=== PATIENT | female | born 2000 ===

== ENCOUNTER 2023-01-10 20:09 | Inpatient (IN) | payer BC ==
[2023-01-10] MEDS ORDERED: Lidocaine 1% 50 ML MDV INJECT PRN (20:38)
[2023-01-10] MEDS ORDERED: Water For Irrigation,Sterile 1,000 ML Container IRR PRN (20:38)
[2023-01-10] MEDS ORDERED: Ondansetron 4 MG/2 ML SDV IVPUSH PRN (20:38)
[2023-01-10] MEDS ORDERED: Ampicillin 2 GM in Sodium Chloride 0.9% 100 ML IV ONE (20:38)
[2023-01-10] MEDS ORDERED: Sodium Chloride 0.9% 2.5 ML Syringe FLUSH PRN (20:38)
[2023-01-10] MEDS ORDERED: Misoprostol 200 MCG Tab PO PRN (20:38)
[2023-01-10] MEDS ORDERED: Sodium Chloride 0.9% 20 ML SDV IV PRN (20:38)
[2023-01-10] MEDS ORDERED: Sodium Chloride 0.9% 10 ML Syringe FLUSH PRN (20:38)
[2023-01-10] MEDS ORDERED: Tranexamic Acid 1,000 MG in Sodium Chloride 0.9% 100 ML IV PRN ×2 (20:38→23:38)
[2023-01-10] MEDS ORDERED: Methylergonovine 0.2 MG/1 ML Amp IM PRN ×2 (20:38→23:38)
[2023-01-10] MEDS ORDERED: Carboprost Tromethamine 250 MCG/1 mL Vial IM PRN (20:38)
[2023-01-10] MEDS ORDERED: Lactated Ringers 1,000 ML IV SCH (20:45)
[2023-01-10] MEDS ORDERED: Oxytocin/0.9 % Sodium Chloride 30 UNIT/500 ML BAG IV SCH (20:45)
[2023-01-10] MEDS ORDERED: Oxytocin 10 Units/1 ML SDV ONE (21:11)
[2023-01-10] MEDS ORDERED: Nalbuphine HCl 10 MG/ 1ML Amp ONE (21:27)
[2023-01-10] MEDS ORDERED: Nalbuphine HCl 10 MG/ 1ML Amp IVPUSH ONE (21:30)
[2023-01-10 21:42] LABS: HEMATOCRIT 35.6 % (36.0-46.0); HEMOGLOBIN 11.9 g/dL (12.0-16.0); MEAN CORPUSCULAR HEMOGLOBIN 25.9 pg (27.0-32.0); MEAN CORPUSCULAR HGB CONC 33.4 g/dL (31.0-37.0); MEAN CORPUSCULAR VOLUME 77.4 fL (80.0-98.0); MEAN PLATELET VOLUME 10.6 fL (7.40-12.00); RED BLOOD CELL COUNT 4.6 M/uL (4.30-5.90); WHITE BLOOD CELL COUNT,WBC 12.23 K/uL (4.0-11.0)
[2023-01-10] MEDS ORDERED: Witch Hazel Medicated Pads 40/Jar TOP PRN (23:38)
[2023-01-10] MEDS ORDERED: Ibuprofen 400 MG Tab PO PRN (23:38)
[2023-01-10] MEDS ORDERED: Ibuprofen 800 MG Tab PO PRN (23:38)
[2023-01-10] MEDS ORDERED: Lanolin 100% Cream 7 GM Tube TOP PRN (23:38)
[2023-01-10] MEDS ORDERED: Acetaminophen 500 MG Tab PO PRN ×2 (23:38)
[2023-01-10] MEDS ORDERED: Misoprostol 200 MCG Tab RECTAL PRN (23:38)
[2023-01-10] MEDS ORDERED: Bisacodyl 10 MG Supp RECTAL PRN (23:38)
[2023-01-10] MEDS ORDERED: Benzocaine/Menthol 20%-0.5% Spray 78 GM Cannister TOP PRN (23:38)
[2023-01-10 23:50] LABS: PH,UMBILICAL ARTERIAL 7.179 (7.18-7.38); PH,UMBILICAL VENOUS 7.219 (7.25-7.45)
[2023-01-11] MEDS ORDERED: Ampicillin 1 GM in Sodium Chloride 0.9% 50 ML IV SCH (00:38)
[2023-01-11 06:34] LABS: HEMATOCRIT 30.8 % (36.0-46.0); HEMOGLOBIN 9.9 g/dL (12.0-16.0)
[2023-01-11] MEDS: Docusate Sodium 100 MG Cap PO PRN ×2 (08:09→21:36)
[2023-01-12] MEDS: Docusate Sodium 100 MG Cap PO PRN (08:14)
== END 2023-01-12 23:45 | disposition home or self-care (01) | DRG 560 ==
LOC: MW.OBCHECK 20:09 → MW.OB 20:10 → MW.OBCHECK 20:48 → OBSVTOIN 22:37 → MW.OB 01-11 01:24
PROVIDERS: ADMIT Obstetrics & Gynecology; ATTEND Obstetrics & Gynecology
PROC: 10E0XZZ Delivery of Products of Conception, External Approach (ICD-10-PCS; principal; 2023-01-10)
PROC: 3E033VJ Introduction of Other Hormone into Peripheral Vein, Percutaneous Approach (ICD-10-PCS; 2023-01-10)
DX: O99.824 Streptococcus B carrier state complicating childbirth (principal); O99.02 Anemia complicating childbirth; D64.9 Anemia, unspecified; Z3A.39 39 weeks gestation of pregnancy; Z37.0 Single live birth
CPT/HCPCS: 36410; 36415; 59025; 59409; 82803; 85014; 85018; 85027; 86850; 86900; 86901; A9270-GY; J0290; J2300; J2590; J3490; J7120